=== PATIENT | male | born 1965 | race Caucasian/White ===

== ENCOUNTER 2020-03-20 09:36 | Outpatient (CLI) | payer MEDICARE, MEDICAID, SELFPAY ==
--- NOTE | ~2020-03-20 | CT_ITS ---
EXAMINATION:CT lung screening DATE: 03/20/2020 10:01 INDICATION: Personal history of tobacco dependence. Current smoker with 35 pack year history. TECHNIQUE: Computed tomography (CT) of the chest was performed without intravenous contrast. Automate d exposure control and iterative reconstruction technique were employed. The dose-length product (DLP ) was 347.28 mGy-cm. COMPARISON: CT abdomen and pelvis 11/01/2011 FINDINGS: There is a 3 mm nodule in right upper lobe. No pleural effusion. The heart size is normal. There are coronary artery calcifications. No pericardial effusion. There are changes of cholecystecto my. There are no pathologically enlarged lymph nodes. There is mild thoracic spondylosis. There is mi ld chronic anterior wedging of multiple vertebral bodies. IMPRESSION: 1. Lung-RADS category 2: Benign appearance or behavior. Continue annual screening with noncontrast lo w-dose chest CT in 12 months. Reviewed, dictated and finalized at location A. IMPRESSION: 1. Lung-RADS category 2: Benign appearance or behavior. Continue annual screeni ng with noncontrast low-dose chest CT in 12 months.
== END 2020-03-20 09:37 | disposition home or self-care (01) ==
LOC: CHSIMG 09:44
PROVIDERS: PCP Internal Medicine; Visit Provider Internal Medicine
DX: Z12.2 Encounter for screening for malignant neoplasm of respiratory organs (principal); Z72.0 Tobacco use; Z87.891 Personal history of nicotine dependence
CPT/HCPCS: G0297

== ENCOUNTER 2020-08-01 09:03 | Outpatient (CLI) | payer MEDICARE, MEDICAID, SELFPAY ==
--- NOTE | ~2020-08-01 | CT_ITS ---
EXAMINATION: CT abdomen pelvis wo con DATE: 08/01/2020 09:27 INDICATION: Gross hematuria for 2 weeks. Dysuria. Low back pain. TECHNIQUE: Computed tomography (CT) of the abdomen and pelvis was performed without intravenous contr ast. Automated exposure control and iterative reconstruction technique were employed. Exam dose: 709 .17 mGy-cm total exam DLP. COMPARISON: 11/01/2011 CT abdomen pelvis is not currently available from the archive but was reported negative, without urinary tract abnormality or obstructive uropathy FINDINGS: The lung bases are clear of infiltrate or consolidation. Normal heart size. No pericardial or pleural effusion. Status post cholecystectomy. The liver, spleen, pancreas, and adrenal glands are unremarkable. No bile duct or pancreatic duct dil atation. No renal mass lesion is evident on this limited noncontrast examination. There is nonspecific mild pe rinephric fat stranding. No urinary tract calculus or hydroureteronephrosis is detected. The bladder wall appears prominently thickened but the bladder is relatively evacuated which may cont ribute to such appearance. Bladder evaluation is limited due to evacuation as well as lack of intrave nous contrast material. Normal caliber of the abdominal aorta. No intraperitoneal or retroperitoneal or pelvic mass lesion or adenopathy or ascites is evident. Normal appendix. No bowel obstruction, bowel wall thickening, pneumatosis or intraperitoneal free air . Very small fat-containing umbilical hernia. No suspicious osteolytic or osteoblastic lesions. IMPRESSION: Nonspecific bladder wall thickening, possibly due in part to evacuation. Bladder evaluat ion is limited due to nondistention and lack of IV contrast material. Given the history of gross devendra turia, further evaluation is recommended, and might include CT examination with IV contrast material as well as as urologic consult and cystoscopy No urinary tract calculus or hydroureteronephrosis Reviewed, dictated and finalized at Location A. Reviewed, dictated and finalized at location A. NG MATERIAL WEIGHER IMPRESSION: Nonspecific bladder wall thickening, possibly due in part to evacu ation. Bladder evaluation is limited due to nondistention and lack of IV contra st material. Given the history of gross hematuria, further evaluation is recomm ended, and might include CT examination with IV contrast material as well as as urologic consult and cystoscopy No urinary tract calculus or hydroureteronephrosis
--- NOTE | ~2020-08-01 | MR_ITS ---
EXAMINATION: MR lumbar spine wo con EXAM DATE: 08/01/2020 11:00 INDICATION: Hematuria, lumbago R leg pain and LBP . TECHNIQUE: Multi-sequential, multiplanar MR images of the lumbar spine were obtained without contrast . Sagittal T1, T2, T2 fat saturation images. Axial T2 weighted images. There is no prior study for comparison. FINDINGS: Mild lumbar disc disease L1-2, L3-4 and L4-5. The vertebral body and disc heights are other godoy well maintained. The vertebral bodies are aligned in the AP dimension. The conus medullaris term inates at the L1/2 level and has normal signal intensity and morphology. There are no suspicious mar row signal abnormalities. Paraspinal soft tissue is unremarkable. Level by level evaluation: T12-L1: Disc does not extend beyond the endplate margin. Facet arthropathy: None. Neural foraminal stenosis: No stenosis. Central canal stenosis: No stenosis. L1-L2: Disc does not extend beyond the endplate margin. Facet arthropathy: None. Neural foraminal stenosis: No stenosis. Central canal stenosis: No stenosis. L2-L3: There is a minimal diffuse disc bulge. Facet arthropathy: Mild. Neural foraminal stenosis: No stenosis. Central canal stenosis: No stenosis. L3-L4: There is a mild diffuse disc bulge. Facet arthropathy: Mild. Neural foraminal stenosis: Mild bilateral. Central canal stenosis: Mild. L4-L5: There is a mild diffuse disc bulge. Facet arthropathy: Mild. Neural foraminal stenosis: Mild to moderate bilateral. Central canal stenosis: Mild. L5-S1: There is a mild diffuse disc bulge. Facet arthropathy: Mild. Neural foraminal stenosis: Mild bilateral. Central canal stenosis: No stenosis. IMPRESSION: 1. L4-5 mild to moderate bilateral neural foraminal stenosis. 2. Lesser spondylosis other levels. Reviewed, dictated and finalized at location B. RVISOR COLOR PASTE MIXING
== END 2020-08-01 09:04 | disposition home or self-care (01) ==
LOC: CHSIMG 09:06
PROVIDERS: PCP Internal Medicine; Visit Provider Nurse Practitioner Family
DX: M54.5 Low back pain (principal); R31.9 Hematuria, unspecified
CPT/HCPCS: 72148; 74176

== ENCOUNTER 2020-09-26 09:09 | Outpatient (CLI) | payer MEDICARE, MEDICAID, SELFPAY ==
--- NOTE | ~2020-09-26 | MR_ITS ---
EXAMINATION: MR thoracic spine wo con DATE: 09/26/2020 10:05 INDICATION: 17 years of thoracic spine pain. TECHNIQUE: Magnetic resonance imaging (MRI) of the thoracic spine was performed without intravenous c ontrast. Sagittal localizer T1-weighted FSE of the cervicothoracic spine was obtained. Thoracic spine sequences included sagittal T2-weighted FSE, sagittal T1-weighted SE, Sagittal T2-weighted FS FSE, a nd axial T2-weighted FSE. COMPARISON: Chest CT dated 03/20/2020 FINDINGS: Alignment is normal.Chronic mild anterior wedging with approximately 10% anterior vertebral body heig ht loss at T7. Remaining thoracic vertebral body heights are normal. There are a few small Schmorl's nodes at several endplates in the mid and lower thoracic and upper lumbar spine. Normal marrow signal .Mild disc height loss atT7-T8, T8-T9and T11-T12. Annular fissure and small left paracentral disc pro trusion resulting in mild central canal stenosis at T6-T7. Remaining discs do not extend beyond the e ndplate margins. No other central canal stenosis in the thoracic spine. Minimal thoracic facet osteoa rthritis with no thoracic neural foraminal stenosis. Mild cervical spondylosis which is not diagnosti lena evaluated. There is normal spinal cord signal. The conus terminates at L1. Paravertebral soft t issues are unremarkable. IMPRESSION: 1. Mild thoracic spondylosis with chronic T7 compression fracture with 10% anterior vertebral body he ight loss. Reviewed, dictated and finalized at location B. ET CONTRACTOR IMPRESSION: 1. Mild thoracic spondylosis with chronic T7 compression fracture with 10% ante rior vertebral body height loss.
== END 2020-09-26 09:10 | disposition home or self-care (01) ==
LOC: CHSIMG 09:10
PROVIDERS: PCP Internal Medicine; Visit Provider Anesthesiology Pain Medicine
DX: M54.6 Pain in thoracic spine (principal); M47.814 Spondylosis without myelopathy or radiculopathy, thoracic region
CPT/HCPCS: 72146

== ENCOUNTER 2020-12-10 10:21 | Emergency (ER) | payer MEDICARE, MEDICAID, SELFPAY ==
--- NOTE | ~2020-12-10 | XR_ITS ---
EXAMINATION: XR chest 2V DATE: 12/10/2020 11:32 INDICATION: Chest pain. TECHNIQUE: Frontal and lateral views of the chest were obtained. COMPARISON: Chest 2 views 11/27/2015, chest CT 03/20/2020 FINDINGS: The chest demonstrates clear lungs without pneumonia, pleural effusion, or pneumothorax. Th e heart size is normal. There are epidural electrodes in thoracic spine. IMPRESSION: 1. No acute cardiopulmonary disease. Reviewed, dictated and finalized at location B.
[2020-12-10 10:30] VITALS: BP 139/62; PULSE 92; RESP 20; TEMP 36.3; O2SAT 97
--- NOTE | 2020-12-10 10:47 | ECG_ITS ---
Measurements Intervals [place] Rate: 87 P: 58 NC: 206 QRS: 124 QRSD: 102 T: 59 QT: 354 QTc: 427 Interpretive Statements SINUS RHYTHM WITH FIRST DEGREE AV BLOCK RIGHT AXIS DEVIATION BORDERLINE R WAVE PROGRESSION, ANTERIOR LEADS MINIMAL Q WAVES- INFERIOR LEADS BASELINE WANDER- I, III, AVF ABNORMAL ECG Electronically Signed On 12-10-2020 11:39:44 CDT by Hilton Cantu D.O.
--- NOTE | 2020-12-10 10:47 | ED.CHESTPAIN ---
HPI - Chest Pain General Chief Complaint: Chest Pain Stated Complaint: chest pain Source: patient and RN notes reviewed Mode of arrival: ambulatory Limitations: no limitations History of Present Illness complaint: chest pain Onset (ago): week(s) (1) Timing of current episode: episodic and daily Onset: during rest Pain location: substernal Pain radiation: none Severity: moderate Quality: tightness and sharp Relieving factors: nothing Exacerbating factors: nothing Associated symptoms: diaphoresis Treatment prior to arrival: none Risk Factors Coronary artery disease risk factors: diabetes, smoking history and hypertension Related Data Home Medications Medication Instructions Recorded Confirmed atenolol 100 mg PO DAILY 12/10/20 12/10/20 escitalopram oxalate 10 mg PO DAILY 12/10/20 12/10/20 exenatide microspheres [Bydureon 2 mg SUBCUT WEEKLY 12/10/20 12/10/20 BCise] fenofibrate 160 mg PO DAILY 12/10/20 12/10/20 hydrocodone-acetaminophen 1 tablet PO TID PRN 12/10/20 12/10/20 insulin glargine [Lantus U-100 30 unit SUBCUT QAM 12/10/20 12/10/20 Insulin] insulin glargine [Lantus U-100 100 unit SUBCUT QPM 12/10/20 12/10/20 Insulin] insulin lispro [Humalog KwikPen 25 unit SUBCUT BID 12/10/20 12/10/20 Insulin] lisinopril 20 mg PO DAILY 12/10/20 12/10/20 omeprazole 40 mg PO DAILY 12/10/20 12/10/20 tizanidine mg 12/10/20 trazodone 12/10/20 Allergies Allergy/AdvReac Type Severity Reaction Status Date / Time No Known Allergies Allergy Verified 12/10/20 11:17 Review of Systems Review of Systems: All systems reviewed & are unremarkable except as noted in HPI and below Constitutional: Constitutional: Denies chills PMFSH Past Medical History Medical History (Updated 12/10/20 @ 13:13 by Den Goins MD) Depression Hypertension Morbid obesity Osteoarthritis Peripheral neuropathy Rheumatoid arthritis Type 2 diabetes mellitus Surgical History Surgical History (Updated 12/10/20 @ 11:18 by Den Goins MD) History of carpal tunnel release History of cholecystectomy Social History Social History (Updated 12/10/20 @ 11:19 by Den Goins MD) Smoking status: Current every day smoker Tobacco type: cigars Alcohol intake: current Substance use: current Substance use type: marijuana Exam Const: General: cooperative, healthy appearing and no acute distress Nutritional Appearance: well nourished and obese morbidly obese Orientation/consciousness: patient oriented x3 HENMT: Head: normal to inspection Ears: external ears normal Eyes: Conjunctivae: conjunctivae normal Pupils: Equal, round and reactive pupils present EOM: EOMs intact bilaterally Neck: Neck: normal visual inspection Resp: Effort & Inspection: normal respiratory effort Auscultation: clear to auscultation bilaterally Cardio: Rate: regular rate Rhythm: regular rhythm GI: GI Palp: Yes Soft to palpation and No Tenderness to palpation present (GI) Auscultation: normal bowel sounds Back/Spine/Pelvis: Cervical Spine: cervical ROM normal Thoracic/Lumbar Spine: other ( patient has external nerve stimulator on his lumbar spine) Skin: General skin exam: normal color Rashes: no rashes Neuro: General: patient oriented x3, moves all extremities and no focal motor deficits Speech: normal speech Gait exam (Neuro): Normal gait present Extrem: General: normal to inspection and no clubbing, cyanosis or edema Psych: Appearance: grossly normal and well kempt Mental Status: mental status grossly normal Affect: normal affect Attitude: cooperative Thought content: Yes Normal thought content present Course Vital Signs Vital signs: Vital Signs Temperature 36.3 C L 12/10/20 10:30 Pulse Rate 92 12/10/20 10:30 Respiratory Rate 20 12/10/20 10:30 Blood Pressure 139/62 12/10/20 10:30 Pulse Oximetry 97 12/10/20 10:30 Temperature 36.3 C L 12/10/20 10:30 Pulse Rate 92 12/10/20 10:30 Respiratory R
[2020-12-10] MEDS: ASPIRIN 81 MG CHEWABLE TABLET 324 MG PO (11:00)
[2020-12-10 11:10] LABS: Basophils Absolute Auto 0.05 K/mm3 (0.00-0.10); Basophils Percent Auto 0.5 % (0.0-1.0); Eosinophils Absolute Auto 0.17 K/mm3 (0.02-0.50); Eosinophils Percent Auto 1.6 % (1.0-6.0); Hematocrit 47.4 % (40.0-54.0); Hemoglobin 16.2 g/dL (14.0-18.0); Immature Granulocyte Absolute 0.02 K/mm3 (0.00-0.00); Immature Granulocyte Percent A 0.2 % (0.0-0.0); Lymphocytes Absolute Auto 3.12 K/mm3 (1.10-4.50); Lymphocytes Percent Auto 29.4 % (18.0-42.0); Mean Corpuscular HGB Conc 34.2 g/dL (32.0-36.0); Mean Corpuscular Volume 84.9 fL (78.0-102.0); Mean Platelet Volume 10.8 fl (8.7-11.0); Monocytes Absolute Auto 0.61 K/mm3 (0.10-0.90); Monocytes Percent Auto 5.7 % (2.0-11.0); Neutrophils Absolute Auto 6.7 K/mm3 (1.7-7.2); Neutrophils Percent Auto 62.6 % (50.0-70.0); Platelet Count Result 194 K/mm3 (150-420); Red Blood Count 5.58 M/mm3 (4.70-6.10); Red Cell Distribution Width 12.7 % (11.6-14.4); White Blood Count 10.6 K/mm3 (4.8-10.8)
[2020-12-10 11:23] LABS: Prothrombin Time 11.1 Seconds (9.50-12.10)
[2020-12-10 11:29] LABS: Alanine Aminotransferase 23 U/L (16-63); Albumin Level 3.4 g/dL (3.4-5.0); Alkaline Phosphatase 48 U/L (46-116); Anion Gap 10 mmol/L (8-16); Aspartate Amino Transferase 11 U/L (15-37); Bilirubin,Total 0.3 mg/dL (0.00-1.00); Blood Urea Nitrogen 14 mg/dL (7-18); Calcium 8.4 mg/dL (8.5-10.1); Carbon Dioxide 26 mmol/L (21-32); Chloride 98 mmol/L (98-108); Estimated Glomerular Filt Rate 60; Glucose 286 mg/dL (70-99); Osmolality Calculated 288 mOsm/kg (285-295); Potassium 4.3 mmol/L (3.5-5.1); Sodium 134 mmol/L (136-145); Total Protein 6.8 g/dL (6.4-8.2)
[2020-12-10 11:30] VITALS: BP 177/90
[2020-12-10] MEDS: cloNIDine HCL 0.2 MG TABLET PO (12:49)
[2020-12-10] MEDS: KETOROLAC (*BKC) 60 MG/2 ML VIAL IM (12:50)
[2020-12-10 13:16] VITALS: BP 160/92
[2020-12-10 15:46] LABS: Cholesterol 135 mg/dL (0-200); Triglycerides 177 mg/dL (0-150)
[2020-12-10 16:05] LABS: HDL Direct 21 mg/dL (40-60); Hemoglobin A1C 7.1 % (<5.7); LDL Cholesterol Calculated 79 mg/dL (<130)
== END 2020-12-10 13:25 | disposition home or self-care (01) ==
PROVIDERS: Emergency Provider Emergency Medicine; PCP Internal Medicine
DX: R07.9 Chest pain, unspecified (principal); I10 Essential (primary) hypertension; E11.9 Type 2 diabetes mellitus without complications; F17.200 Nicotine dependence, unspecified, uncomplicated
CPT/HCPCS: 36415; 71046; 80053; 80061; 83036; 84484; 85025; 85380; 85610; 93005; 96372; 99283; 99284; A9270; J1885

== ENCOUNTER 2021-02-11 07:40 | Outpatient (CLI) | payer MEDICARE, MEDICAID, SELFPAY ==
--- NOTE | ~2021-02-11 | NM_ITS ---
EXAMINATION: NM aissatou stress w perfusion DATE: 02/11/2021 11:52 INDICATION: Chest pain. TECHNIQUE: Rest images were obtained following intravenous administration of 9.9 mCi Tc99m tetrofosmi n (Myoview). The patient was infused intravenously with Lexiscan (regadenoson). Then, 29.7 mCi Tc99m tetrofosmin (Myoview) was administered intravenously, and supine and prone stress images were obtaine d. Data was reconstructed into short axis and horizontal and vertical long axis SPECT images. Gated S PECT images were also obtained. COMPARISON: Chest 2 views 12/10/2020, CT abdomen and pelvis 08/01/2020 FINDINGS: There is a moderate-sized, moderate severity, partially reversible perfusion defect involvi ng left ventricular apex, apical septal segment, and apical to mid anterior segments. There is no se gmental wall motion abnormality. Left ventricular ejection fraction measures >70%. IMPRESSION: 1. Moderate-sized area of moderate-severity mixed ischemia and infarct involving left ventricular ape x, apical septal segment, and apical to mid anterior segments. 2. Normal left ventricular ejection fraction measuring >70%. Reviewed, dictated and finalized at location A. IMPRESSION: 1. Moderate-sized area of moderate-severity mixed ischemia and infarct involvin g left ventricular apex, apical septal segment, and apical to mid anterior segm ents. 2. Normal left ventricular ejection fraction measuring >70%.
--- NOTE | 2021-02-11 07:51 | EST_ITS ---
Patient Info Name: Jonn Lora Age: 55 years : 1965 Gender: Male Ht: 66 in Wt: 230 lbs BSA: 2.25 m2 HR: 77 bpm BP: 108 / 63 mmHg Heart Rhythm: Sinus Rhythm Exam Date: 02/11/2021 10:21 AM Exam Location: [facility] Stress Patient Status: Outpatient Admit Date: 02/11/2021 Staff Ordering Physician: Hilton Cantu DO Attending Provider: Hilton Cantu DO Referring Physician: PRANAV; Exercise Technologist: Rohini Berger RDCS Exercise Physician: Hilton Cantu DO Exam Type: CA stress aissatou w NM Study Info Indications R07.89 - Other chest pain A regadenoson stress test was performed. Summary 1. 1. Negative lexiscan stress test for ischemic ST changes by ECG criteria. 2. 2. Stable hemodynamics throughout the test. 3. 3. Nuclear scan to follow and will be reported separately. Please correlate with it. 4. 4. Patient informed of the above results. Protocol: Lexiscan Stress ECG Details Stage: REST Duration (min): 0 min : 11 sec HR (bpm): 76 SBP (mmHg): --- DBP (mmHg): --- Stage: REST Duration (min): 3 min : 4 sec HR (bpm): 78 SBP (mmHg): 108 DBP (mmHg): 63 Stage: REST Duration (min): 11 min : 59 sec HR (bpm): 80 SBP (mmHg): 108 DBP (mmHg): 63 Stage: STAGE 1 Duration (min): 0 min : 59 sec HR (bpm): 79 SBP (mmHg): 100 DBP (mmHg): 60 Stage: RECOVERY Duration (min): 1 min : 0 sec HR (bpm): 86 SBP (mmHg): 100 DBP (mmHg): 60 Stage: RECOVERY Duration (min): 2 min : 0 sec HR (bpm): 91 SBP (mmHg): 100 DBP (mmHg): 60 Stage: RECOVERY Duration (min): 3 min : 0 sec HR (bpm): 90 SBP (mmHg): 110 DBP (mmHg): 64 Stage: RECOVERY Duration (min): 3 min : 43 sec HR (bpm): 89 SBP (mmHg): 110 DBP (mmHg): 64 Rest HR: 80 bpm Peak HR: 92 bpm Rest Sys BP: 108 mmHg Peak Sys BP: 110 mmHg Max Pred HR: 164 bpm % Max Pred HR: 56 % Target HR: 139 bpm Max RPP: 10,120 bpm*mmHg Termination Reason: Completed protocol Cardiac Symptoms: Shortness of breath, Cough Total Time: 1 min : 0 sec Rest [place] BP: 63 mmHg Peak [place] BP: 64 mmHg Total Dose: 0.4 mg Resting ECG Sinus rhythm. Stress ECG No ST changes. Arrhythmias None. Report Signatures
--- NOTE | 2021-02-11 07:51 | ECHO_ITS ---
Patient Info Name: Jonn Lora Age: 55 years : 1965 Gender: Male Ht: 67 in Wt: 230 lbs BSA: 2.26 m2 Heart Rhythm: Sinus Rhythm Exam Date: 02/11/2021 8:10 AM Exam Location: [facility] Pulmonary Patient Status: Outpatient Admit Date: 02/11/2021 Staff Ordering Physician: Hilton Cantu DO Boiler Room Operator: Rohini Berger RDCS Attending Provider: Hilton Cantu DO Referring Physician: Pepe MUNIZ; Exam Type: CA echo doppler color flow Study Info Indications R07.89 - Other chest pain Complete two-dimensional, color flow and Doppler transthoracic echocardiogram is performed. Summary 1. Complete two-dimensional, color flow and Doppler transthoracic echocardiogram is performed. 2. Left ventricular chamber dimension is normal. 3. Left ventricular systolic function is normal, estimated at 60-65%. 4. There is mildly increased left ventricular wall thickness. 5. The left ventricular diastolic function is grade II diastolic dysfunction. 6. E/e' 10 is mildly elevated. 7. There is trace pulmonic regurgitation. Left Ventricle E/e' 10 is mildly elevated. Left ventricular chamber dimension is normal. Left ventricular systolic function is normal, estimated at 60-65%. There is mildly increased left ventricular wall thickness. The left ventricular diastolic function is grade II diastolic dysfunction. Right Ventricle Right ventricular systolic function is normal and with normal TAPSE 3.4 cm. Right ventricular chamber dimension is normal. Left Atria Left atrial chamber dimension is normal. Right Atria Right atrial chamber dimension is normal. Aortic Valve The aortic valve is trileaflet. There is no aortic valve stenosis. There is no aortic valve regurgitation. Pulmonic Valve There is trace pulmonic regurgitation. Mitral Valve There is no mitral valve stenosis. There is no mitral valve regurgitation. Tricuspid Valve There is no tricuspid valve regurgitation. Pericardium/Pleural There is no pericardial effusion. Inferior Vena Cava Normal inferior vena cava with >50% collapse upon inspiration consistent with normal right atrial pressure, 5 mmHg. Aorta The aortic root size at the sinus of Valsalva is normal. Left Ventricular Outflow Tract Name Value Normal LVOT 2D LVOT Diameter 2.0 cm LVOT Doppler LVOT Peak Gradient 3 mmHg LVOT Mean Gradient 1 mmHg LVOT VTI 17 cm LVOT VTI/AV VTI Ratio 0.7 LVOT Stroke Volume 54 ml LVOT CO 4.1 l/min LVOT CI 1.8 l/min/m2 Pulmonic Valve Name Value Normal RVOT Doppler RVOT Peak Gradient 2 mmHg PV Doppler
== END 2021-02-11 07:41 | disposition home or self-care (01) ==
PROVIDERS: PCP Internal Medicine; Visit Provider Internal Medicine Cardiovascular Disease
DX: R06.00 Dyspnea, unspecified (principal); R07.9 Chest pain, unspecified
CPT/HCPCS: 78452; 93017; 93306; A9502; J2785

== ENCOUNTER → 2021-02-23 00:14 | Outpatient (CLI) | payer MEDICARE, MEDICAID, SELFPAY ==
[2021-02-23 16:43] LABS: SARS-CoV-2 RNA PCR Negative
== END ==
PROVIDERS: PCP Internal Medicine; Visit Provider Internal Medicine Cardiovascular Disease
DX: Z01.812 Encounter for preprocedural laboratory examination (principal); Z20.822 Contact with and (suspected) exposure to COVID-19
CPT/HCPCS: C9803; U0003; U0005

== ENCOUNTER 2021-02-23 08:22 | Outpatient (CLI) | payer MEDICARE, MEDICAID, SELFPAY ==
[2021-02-23 08:48] LABS: Basophils Percent Auto 0.6 % (0.2-1.2); Eosinophils Absolute Auto 0.1 K/mm3 (0-0.3); Hematocrit 47.4 % (42.0-52.0); Hemoglobin 16.4 g/dL (14.0-18.0); Immature Granulocyte Absolute 0.01 K/mm3 (0.00-0.031); Immature Granulocyte Percent A 0.1 % (0-0.5); Lymphocytes Absolute Auto 2.55 K/mm3 (0.9-3.2); Lymphocytes Percent Auto 36.1 % (18.3-44.2); Mean Corpuscular HGB Conc 34.6 g/dl (32-36); Mean Corpuscular Hemoglobin 29.4 pg (26-34); Mean Corpuscular Volume 85.1 fl (80-100); Mean Platelet Volume 11.3 fl (7.4-10.4); Monocytes Absolute Auto 0.5 K/mm3 (0.1-0.6); Monocytes Percent Auto 6.9 % (2.6-8.5); Neutrophils Absolute Auto 3.9 K/mm3 (1.3-6.7); Neutrophils Percent Auto 55.3 % (45.5-73.1); Platelet Count Result 176 k/mm3 (150-375); Red Blood Count 5.57 M/mm3 (4.6-6.20); White Blood Count 7.1 K/mm3 (4.5-10.0)
[2021-02-23 09:03] LABS: Alanine Aminotransferase 21 U/L (4-50); Albumin Level 4.2 g/dL (3.5-5.1); Alkaline Phosphatase 39 U/L (38-126); Anion Gap 9 mmol/L (8-16); Aspartate Amino Transferase 24 U/L (17-59); Bilirubin,Total 0.5 mg/dL (0.2-1.3); Blood Urea Nitrogen 19 mg/dL (9-20); Calcium 8.9 mg/dL (8.4-10.2); Carbon Dioxide 24 mmol/L (22-30); Chloride 100 mmol/L (98-107); Estimated Glomerular Filt Rate > 60; Glucose 342 mg/dL (65-110); Potassium 4.3 mmol/L (3.4-5.0); Sodium 133 mmol/L (137-145)
== END 2021-02-23 08:23 | disposition home or self-care (01) ==
PROVIDERS: PCP Internal Medicine; Visit Provider Internal Medicine Cardiovascular Disease
DX: Z01.810 Encounter for preprocedural cardiovascular examination (principal)
CPT/HCPCS: 36415; 80053; 85025; C9803; U0003; U0005

== ENCOUNTER 2021-02-26 01:13 | Day surgery (SDC) | payer MEDICARE, MEDICAID, SELFPAY ==
[2021-02-25 11:20] VITALS: BMI 38.0
[2021-02-26] VITALS (11 sets, daily range): BP systolic 129–182; BP diastolic 76–100; PULSE 75–93; RESP 13–17; TEMP 36–36.2; O2SAT 95–98; BMI 35.8
[2021-02-26 09:31] LABS: Glucose Point of Care 318 mg/dl (65-105)
[2021-02-26 09:35] LABS: Basophils Absolute Auto 0.1 K/mm3 (0.0-0.1); Basophils Percent Auto 0.5 % (0.2-1.2); Eosinophils Absolute Auto 0.1 K/mm3 (0-0.3); Eosinophils Percent Auto 0.7 % (0-4.4); Hematocrit 48.5 % (42.0-52.0); Hemoglobin 17.5 g/dL (14.0-18.0); Immature Granulocyte Absolute 0.04 K/mm3 (0.00-0.031); Immature Granulocyte Percent A 0.3 % (0-0.5); Lymphocytes Absolute Auto 3.29 K/mm3 (0.9-3.2); Mean Corpuscular HGB Conc 36.1 g/dl (32-36); Mean Corpuscular Hemoglobin 29.9 pg (26-34); Mean Corpuscular Volume 82.9 fl (80-100); Mean Platelet Volume 11.4 fl (7.4-10.4); Monocytes Absolute Auto 0.8 K/mm3 (0.1-0.6); Monocytes Percent Auto 6.2 % (2.6-8.5); Neutrophils Absolute Auto 7.9 K/mm3 (1.3-6.7); Neutrophils Percent Auto 65.3 % (45.5-73.1); Platelet Count Result 205 k/mm3 (150-375); Red Blood Count 5.85 M/mm3 (4.6-6.20); Red Cell Distribution Width 11.9 % (11.5-14.5); White Blood Count 12.2 K/mm3 (4.5-10.0)
[2021-02-26 09:56] LABS: Alanine Aminotransferase 21 U/L (4-50); Albumin Level 4.5 g/dL (3.5-5.1); Alkaline Phosphatase 40 U/L (38-126); Anion Gap 12 mmol/L (8-16); Aspartate Amino Transferase 27 U/L (17-59); Bilirubin,Total 0.8 mg/dL (0.2-1.3); Blood Urea Nitrogen 17 mg/dL (9-20); Calcium 9.3 mg/dL (8.4-10.2); Carbon Dioxide 24 mmol/L (22-30); Chloride 93 mmol/L (98-107); Estimated CRCL calculation 70 ml/min; Estimated Glomerular Filt Rate > 60; Glucose 288 mg/dL (65-110); Potassium 4.8 mmol/L (3.4-5.0); Sodium 129 mmol/L (137-145)
[2021-02-26] MEDS: SODIUM CHLORIDE 0.9% IV 500 ML 125 ML IV CONT (10:48)
[2021-02-26] MEDS: INSULIN HUMAN REGULAR (*BKC) 100 UNITS/ML SUB-Q (10:52)
--- NOTE | 2021-02-26 10:55 | WPDMODSED ---
Moderate Sedation Note-Pt Data Patient Data Allergies Allergy/AdvReac Type Severity Reaction Status Date / Time No Known Allergies Allergy Verified 02/14/21 13:25 Home Medications Medication Instructions Recorded Confirmed Type atenolol 100 mg PO DAILY 12/10/20 02/25/21 History escitalopram oxalate 10 mg PO DAILY 12/10/20 02/25/21 History exenatide microspheres [Bydureon 2 mg SUBCUT WEEKLY 12/10/20 02/25/21 History BCise] fenofibrate 160 mg PO DAILY 12/10/20 02/25/21 History hydrocodone-acetaminophen 1 tablet PO TID PRN 12/10/20 02/25/21 History insulin glargine [Lantus U-100 30 unit SUBCUT QAM 12/10/20 02/25/21 History Insulin] insulin glargine [Lantus U-100 100 unit SUBCUT QPM 12/10/20 02/25/21 History Insulin] insulin lispro [Humalog KwikPen 25 unit SUBCUT BID 12/10/20 02/25/21 History Insulin] lisinopril 20 mg PO DAILY 12/10/20 02/25/21 History omeprazole 40 mg PO DAILY 12/10/20 02/25/21 History tizanidine 4 mg PO QID 12/10/20 02/25/21 History trazodone 100 mg PO HS 12/10/20 02/25/21 History aspirin 81 mg tablet,delayed 81 mg PO DAILY 02/14/21 02/25/21 History release ascorbate calcium (vitamin C) 500 mg PO DAILY 02/25/21 02/25/21 History fiber 1 tablet PO BID 02/25/21 02/25/21 History garlic 1,000 mg PO DAILY 02/25/21 02/25/21 History hydroxyzine pamoate 25 mg PO HS 02/25/21 02/25/21 History melatonin 5 mg PO HS PRN 02/25/21 02/25/21 History [id number]-cpagdqkf-fppviy 1 tablet PO DAILY 02/25/21 02/25/21 History [Centrum Silver] omega-3 fatty acids-vitamin E 1 cap PO DAILY 02/25/21 02/25/21 History [Fish Oil] pregabalin 100 mg PO BID 02/25/21 02/25/21 History vitamin E 1 tablet PO DAILY 02/25/21 02/25/21 History Current Medications: Active Medications Sodium Chloride (Normal Saline Iv) 500 mls @ 125 mls/hr IV CONT .Q4H [facility] Last Admin: 02/26/21 10:48 Dose: 125 mls/hr Documented by: Sedation/Anesthesia: No previous sedation/anesthesia problems (including family history). [facility] Past Medical History Medical History Depression Hypertension Morbid obesity Osteoarthritis Peripheral neuropathy Rheumatoid arthritis Type 2 diabetes mellitus Surgical History Surgical History History of carpal tunnel release History of cholecystectomy Social History Social History Smoking status: Heavy tobacco smoker Tobacco type: cigarettes Alcohol intake: never Alcohol use details: occasionally 2 drinks a month Substance use: current Substance use type: marijuana Living arrangements: with family Gender identity (if verbalized by the patient): Male Spiritual care concerns: No Mod Sed Physical Exam Physical Exam Pre Procedural Exam: Normal: Airway Hours since solid foods: 10 Hours since liquid intake: 10 Mallampati Classification: class II Internal Medicine - PN: Obj Da Vital Signs Vital Signs: Vital Signs - 24 hr 02/26/21 09:30 Temperature 36.0 C L Pulse Rate 87 Respiratory Rate 14 Blood Pressure 129/78 Pulse Oximetry 95 Meds/Results Medications: Active Medications Generic Name Dose Route Start Last Admin Trade Name Freq PRN Reason Stop Dose Admin Sodium Chloride 500 mls @ 125 mls/hr 02/26/21 08:30 02/26/21 10:48 Normal Saline Iv IV CONT 125 mls/hr .Q4H ZAIRE Administration Labs CBC & Chem 7: 02/26/21 09:14 02/26/21 09:14 Labs: Laboratory Results - last 24 hr 02/26/21 02/26/21 02/26/21 09:14 09:14 09:17 WBC 12.2 H RBC 5.85 Hgb 17.5 Hct 48.5 MCV 82.9 MCH 29.9 MCHC 36.1 H RDW 11.9 Plt Count 205 MPV 11.4 H Immature Gran % (Auto) 0.3 Neut % (Auto) 65.3 Lymph % (Auto) 27.0 [place] % (Auto) 6.2 Eos % (Auto) 0.7 Baso % (Auto) 0.5 Lymph # (Auto) 3.29 H [place] # (Auto) 0.8 H
--- NOTE | 2021-02-26 10:57 | WPDHPUPDATE1 ---
History and Physical Update Update Date/Time: 02/26/21 10:57 History and Physical has been reviewed, including an updated exam of the patient. There are NO changes in the patient's condition. Risks, benefits, and alternatives have been discussed and questions answered. Patient agrees to proceed with procedure.
--- NOTE | 2021-02-26 14:43 | PC.NURSE ---
Pt up to chair at 1415. Tolerated well. No redness or hematoma present. Drsg remains clean, dry and intact. Eating lunch while sitting in chair.
[2021-02-26] MEDS: lisinopriL 20 MG TABLET PO (16:24)
--- NOTE | 2021-02-26 17:21 | SUR.PHASEII ---
1710 D/C instructions reviewed in depth with patient and his friend in the room, questions answered, he verbalizes understanding. Pts BP elevated, Rossy Avendaño NP visited pt at bedside and aware of pts anxiousness to go home and elevated BP. Evening dose of Lisinopril given PO per Rossy Avendaño NP d/t pt D/Cing his own IV. BP monitored for as long as patient would allow, he d/c'd his monitoring equipment himself and stated he was ready to leave. Per Rossy PERDOMO ok to send home, reinforced the need to remain compliant with new d/c medications and instructed to f/u with Dr. Cantu. Pt transported via wheelchair to [facility] where his friend drove him home in private vehicle.
--- NOTE | 2021-02-27 16:04 | WPDCARDPROC ---
Cardiac Cath Procedure Note Date of procedure:: 02/27/21 Performing physician:: Fady Kruse MD Procedure Procedure note:: CARDIAC CATHETERIZATION AND PERCUTANEOUS CORONARY INTERVENTION REPORT DATE OF PROCEDURE: 02/26/2021 INDICATION FOR PROCEDURE: angina, abnormal stress test, coronary risk factors BRIEF CLINICAL HISTORY: 55-year-old male with hypertension, diabetes mellitus on insulin, dyslipidemia, obesity, tobacco abuse. Patient was referred by Dr. Cantu for cardiac catheterization in the setting of anginal chest pain and abnormal MPI. Patient had MPI done on 02/11/2021 which reportedly showed moderate-sized area of moderate-severity mixed ischemia and infarct involving left ventricular apex, apical septal segment, and apical to mid anterior segments; LV EF more than 70% . Benefits and risks of the procedure were discussed with the patient in depth, and informed consent was obtained prior to the procedure. Risks of the procedure include but are not limited to vascular complications including groin hematoma, retroperitoneal bleed, vessel perforation; periprocedural RI, cardiac arrhythmias, stroke, contrast induced nephropathy, and . After discussing all the benefits, risks and alternatives, patient was willing to proceed with the procedure. PROCEDURES PERFORMED: 1. Left heart catheterization- Selective left and right coronary angiogram; left ventriculogram and hemodynamic assessment 2. Percutaneous coronary intervention- a) balloon angioplasty and stenting of high-grade, subtotal stenosis in the upper Part of mid segment of LAD using 3.5 x 15 mm Biotronik orsiro sirolimus eluting stent with good angiographic results; b) IFR of proximal-mid RCA 3. Selective right common femoral angiogram and deployment of Angio-Seal hemostatic device 4. Moderate sedation-CPT code 19295 MODERATE SEDATION: Midazolam 2 mg; fentanyl 50 mcg. Start time 1114 , Stop time 1214 ; Total [id number] time 60 minutes; Prabha De Oliveira RN was trained observer for moderate sedation. ACCESS SITE: Right common femoral artery PROCEDURE NOTE: After obtaining informed consent, patient was brought to catheterization lab and prepped and draped in a usual sterile manner. After local anesthesia with lidocaine, right common femoral artery access was taken with micropuncture needle followed by insertion of a 5 Bh[place]anese sheath. Selective left and right coronary angiogram was performed using 5 [place]anese JL4 and JR4 catheters respectively. Orthogonal views were taken. Next, a 5 [place]anese pigtail catheter was advanced in the LV cavity and was flushed with normal saline. LV pressure measurement was performed. After this, left ventriculogram was performed. The catheter was flushed again, and gradient across the aortic valve was measured on the pullback of the catheter. After completion of PCI, Selective right common femoral angiogram was performed after PCI followed by successful deployment of Angio-Seal vascular closure device. Patient tolerated procedure well without any immediate procedure related complications. FINDINGS: LEFT MAIN CORONARY: the left main coronary is a medium caliber vessel, no significant focal stenosis. LEFT ANTERIOR DESCENDING ARTERY: The LAD is a medium caliber vessel. There is high-grade, diffuse about 95% stenosis in the upper most part of the mid segment distal to the major diagonal branch , between 1st and 2nd diagonal branch. There is mild diffuse plaque in the mid segment. The vessel tapers distally and reaches LV apex. First diagonal branch is a large caliber vessel with minor irregularities. Second diagonal branch is medium caliber vessel with mild narrowing at the ostium. LEFT CIRCUMFLEX ARTERY: the left circumflex artery is a medium caliber vessel. It gives rise to small to medium caliber OM 1 branch which has about 60-70% discrete stenosis in the proximal segment; and small to medium caliber OM 2 branch without significant focal stenosis
== END 2021-02-26 17:15 | disposition home or self-care (01) ==
PROVIDERS: PCP Internal Medicine; Visit Provider Internal Medicine Cardiovascular Disease
PROC: 4A023N7 Measurement of Cardiac Sampling and Pressure, Left Heart, Percutaneous Approach (ICD-10-PCS; CPT 93452; principal; 2021-02-26 10:00)
PROC: 4A033BC Measurement of Arterial Pressure, Coronary, Percutaneous Approach (ICD-10-PCS; CPT 93571; 2021-02-26 10:00)
DX: I25.10 Atherosclerotic heart disease of native coronary artery without angina pectoris (principal); R94.39 Abnormal result of other cardiovascular function study; I10 Essential (primary) hypertension; E78.5 Hyperlipidemia, unspecified; E11.42 Type 2 diabetes mellitus with diabetic polyneuropathy; M06.9 Rheumatoid arthritis, unspecified; Z79.4 Long term (current) use of insulin; Z79.82 Long term (current) use of aspirin; E66.9 Obesity, unspecified; Z68.35 Body mass index [BMI] 35.0-35.9, adult; F17.210 Nicotine dependence, cigarettes, uncomplicated; F12.90 Cannabis use, unspecified, uncomplicated
CPT/HCPCS: 36415; 80053; 82948; 85025; 93458; 93571; A9270; C1725; C1760; C1769; C1874; C1887; C1894; C9600; G0269; J0583; J1644; J1815; J2250; J3010; J7040

== ENCOUNTER 2021-03-21 10:02 | Outpatient (CLI) | payer MEDICARE, MEDICAID, SELFPAY ==
--- NOTE | ~2021-03-21 | CT_ITS ---
EXAMINATION:CT lung screening DATE: 03/21/2021 10:19 INDICATION: Personal history of tobacco dependence. Current smoker with 40 pack year history. TECHNIQUE: Computed tomography (CT) of the chest was performed without intravenous contrast. Automate d exposure control and iterative reconstruction technique were employed. The dose-length product (DLP ) was 288.10 mGy-cm. COMPARISON: Chest CT 03/20/2020 FINDINGS: Again seen is a 3 mm nodule in right lung upper lobe. No pleural effusion. The heart size i s normal. There is a stent in left anterior descending coronary artery. No pericardial effusion. Ther e are changes of cholecystectomy. There is mild thoracic spondylosis. There is mild chronic anterior wedging of multiple thoracic vertebral bodies. IMPRESSION: 1. Lung-RADS category 2: Benign appearance or behavior. Continue annual screening with noncontrast lo w-dose chest CT in 12 months. Reviewed, dictated and finalized at location B. IMPRESSION: 1. Lung-RADS category 2: Benign appearance or behavior. Continue annual screeni ng with noncontrast low-dose chest CT in 12 months.
== END 2021-03-21 10:03 | disposition home or self-care (01) ==
LOC: CHSIMG 10:03
PROVIDERS: PCP Internal Medicine; Visit Provider Internal Medicine
DX: Z12.2 Encounter for screening for malignant neoplasm of respiratory organs (principal); Z87.891 Personal history of nicotine dependence
CPT/HCPCS: 71271

== ENCOUNTER 2021-06-24 11:03 | Outpatient (CLI) | payer OTHER, SELFPAY ==
[2021-06-24 13:59] LABS: SARS-CoV-2 RNA PCR Negative (Negative)
== END 2021-06-24 11:04 | disposition home or self-care (01) ==
PROVIDERS: PCP Internal Medicine; Visit Provider Internal Medicine
DX: Z20.822 Contact with and (suspected) exposure to COVID-19 (principal)
CPT/HCPCS: C9803; U0003; U0005

== ENCOUNTER 2022-05-26 10:16 | Outpatient (CLI) | payer OTHER, SELFPAY ==
--- NOTE | ~2022-05-26 | US_ITS ---
EXAMINATION: US retroperitoneal comp DATE: 05/26/2022 11:11 INDICATION: Chronic kidney disease stage III TECHNIQUE: Multiple grayscale and Doppler ultrasound images of the kidneys were obtained. COMPARISON: None. FINDINGS: The right kidney measures 11.0 x 5.6 x 5.5 cm. The left kidney measures 11.2 x 5.0 x 5.8 cm . The kidneys demonstrate normal parenchymal echogenicity. There is no hydronephrosis. The bladder is normal. IMPRESSION: 1. Normal kidneys without hydronephrosis. Reviewed, dictated and finalized at location A.
[2022-05-26 11:18] LABS: Appearance Urine Clear (Clear); Bilirubin Urine Negative (Negative); Blood Urine Negative (Negative); Glucose Urine UA 3+ (Negative); Ketones Urine Negative (Negative); Leukocyte Esterase Ur Negative (Negative); Nitrate Urine Negative (Negative); Protein Urine Negative (Negative); Specific Grav Ur <= 1.005 (1.010-1.020); Urobilinogen Urine 0.2 mg/dL (0.2-1.0)
[2022-05-26 11:19] LABS: Basophils Absolute Auto 0.06 K/mm3 (0.00-0.10); Basophils Percent Auto 0.7 % (0.0-1.0); Eosinophils Absolute Auto 0.08 K/mm3 (0.02-0.50); Hematocrit 45.8 % (40.0-54.0); Hemoglobin 15.7 g/dL (14.0-18.0); Immature Granulocyte Absolute 0.02 K/mm3 (0.00-0.00); Immature Granulocyte Percent A 0.2 % (0.0-0.0); Lymphocytes Absolute Auto 3.09 K/mm3 (1.10-4.50); Lymphocytes Percent Auto 36.9 % (18.0-42.0); Mean Corpuscular HGB Conc 34.3 g/dL (32.0-36.0); Mean Corpuscular Hemoglobin 28.8 pg (27.0-31.0); Mean Corpuscular Volume 83.9 fL (78.0-102.0); Mean Platelet Volume 11.4 fl (8.7-11.0); Neutrophils Absolute Auto 4.6 K/mm3 (1.7-7.2); Neutrophils Percent Auto 55.2 % (50.0-70.0); Platelet Count Result 210 K/mm3 (150-420); Red Blood Count 5.46 M/mm3 (4.70-6.10); Red Cell Distribution Width 11.8 % (11.6-14.4); White Blood Count 8.4 K/mm3 (4.8-10.8)
[2022-05-26 11:22] LABS: Add Urine Microscopic? YES; Color Urine Light Yellow (Yellow)
[2022-05-26 11:23] LABS: Bacteria Urine 2+ /hpf; RBC Urine None seen /hpf (0-2); WBC Urine None seen /hpf (0-3)
[2022-05-26 11:31] LABS: MALB Creatinine Ratio 72.5 mg/g (0-30); Microalbumin Urine Random 20.9 mg/L; Total Protein Urine Random 12.3 mg/dL (0.0-11.9); Ur Ttl Prot Creatinine Ratio 0.43 mg/mg (0-0.20)
[2022-05-26 11:33] LABS: Hemoglobin A1C 10.3 % (<5.7)
[2022-05-26 11:50] LABS: Alanine Aminotransferase 29 U/L (16-63); Albumin Level 4.2 g/dL (3.4-5.0); Alkaline Phosphatase 48 U/L (46-116); Anion Gap 8 mmol/L (8-16); Aspartate Amino Transferase 17 U/L (15-37); Bilirubin,Total 0.4 mg/dL (0.00-1.00); Blood Urea Nitrogen 37 mg/dL (7-18); Calcium 9.2 mg/dL (8.5-10.1); Carbon Dioxide 30 mmol/L (21-32); Chloride 99 mmol/L (98-108); Cholesterol 111 mg/dL (0-200); Estimated Glomerular Filt Rate 36; Free T4 Free Thyroxine 1.08 ng/dL (0.76-1.46); Glucose 267 mg/dL (70-99); HDL Direct 22 mg/dL (40-60); LDL Cholesterol Calculated 6 mg/dL (<130); Magnesium 2.1 mg/dL (1.8-2.4); Osmolality Calculated 301 mOsm/kg (285-295); Phosphorus 3.6 mg/dL (2.6-4.7); Potassium 4.6 mmol/L (3.5-5.1); Sodium 137 mmol/L (136-145); Thyroid Stimulating Hormone 2.05 uIU/mL (0.36-3.74); Total Protein 7.7 g/dL (6.4-8.2); Triglycerides 415 mg/dL (0-150)
[2022-05-26 11:55] LABS: CRP < 0.2 mg/dL (0.0-0.9)
[2022-05-26 11:56] LABS: LDL Cholesterol Direct 39 mg/dL (0-130)
[2022-05-26 12:21] LABS: Erythrocyte Sedimentation Rate 7 mm/hr (0-20)
[2022-05-28 13:53] LABS: RPR Screen Non-Reactive (Non-Reactive)
[2022-05-28 19:23] LABS: Vitamin D 25 Hydroxy 19 ng/mL (30-100)
[2022-05-29 07:08] LABS: Complement C3 168 mg/dL (82-185)
[2022-05-29 18:29] LABS: Parathyroid Intact 20 pg/mL (14-64)
[2022-05-29 19:17] LABS: Hepatitis B Surface Antibody Nonreactive (Nonreactive); Hepatitis B Surface Antigen Nonreactive (Nonreactive); Hepatitis C Signal to Cutoff 0.02 ratio (<1.00); Hepatitis C Virus Antibody Nonreactive (Nonreactive)
== END 2022-05-26 10:17 | disposition home or self-care (01) ==
PROVIDERS: PCP Internal Medicine; Visit Provider Internal Medicine Nephrology
DX: K21.9 Gastro-esophageal reflux disease without esophagitis (principal); I25.84 Coronary atherosclerosis due to calcified coronary lesion; I12.9 Hypertensive chronic kidney disease with stage 1 through stage 4 chronic kidney disease, or unspecified chronic kidney disease; N18.30 Chronic kidney disease, stage 3 unspecified; E10.9 Type 1 diabetes mellitus without complications; Z79.4 Long term (current) use of insulin; E78.00 Pure hypercholesterolemia, unspecified
CPT/HCPCS: 36415; 76770; 80053; 80061; 81001; 82043; 82306; 82570; 83036; 83721; 83735; 83970; 84100; 84156; 84439; 84443; 85025; 85652; 86140; 86160; 86592; 86706